=== PATIENT | female | born 1985 | race Two or more races ===

== ENCOUNTER 2016-09-11 08:00 | Day surgery (SDC) | payer OTHER ==
[2016-09-11 09:05] LABS: PARTIAL THROMBOPLASTIN TIME 30.3 SEC (23.5-35.8); PROTHROMBIN TIME 13.1 SEC (11.4-15.4)
[2016-09-11 11:24] LABS: APPEARANCE ALL TUBES CLEAR; RBC DILUENT USED NONE USED; RBC DILUTION FACTOR 1; RBC SIDE 1 0; RBC SIDE 2 0; TOTAL RBC SQUARES COUNTED 225; WHITE BLOOD CELL,CSF 2 /uL (0-5)
[2016-09-11 11:57] LABS: GLUCOSE,CSF 46 mg/dL (40-70)
[2016-09-11 14:40] VITALS: BP 100/69
[2016-09-12 17:36] LABS: ALBUMIN CSF 13 mg/dL (11-48); ALBUMIN SERUM 3.7 g/dL (3.5-5.5); CSF IGG INDEX 0.5 (0.0-0.7); IGG SYNTHESIS RATE CSF -3.8 mg/day (-9.9 TO +3.3); IGG/ALBUMIN RATIO CSF 0.13 (0.00-0.25); IMMUNOGLOBULIN G CSF 1.7 mg/dL (0.0-8.6); IMMUNOGLOBULIN G SERUM 1044 mg/dL (700-1600)
[2016-09-13 10:10] LABS: CSF/SERUM ALBUMIN INDEX 4 (0-8)
== END 2016-09-11 13:10 | disposition home or self-care (01) ==
LOC: RAD 08:00
PROVIDERS: ATTEND Specialist
PROC: 009U3ZX Drainage of Spinal Canal, Percutaneous Approach, Diagnostic (ICD-10-PCS; principal; 2016-09-11)
DX: G35 Multiple sclerosis (principal); G43.909 Migraine, unspecified, not intractable, without status migrainosus; R42 Dizziness and giddiness
CPT/HCPCS: 36415; 62270; 77003; 82784; 82945; 83916; 84157; 85610; 85730; 87070; 87205; 89050